=== PATIENT | female | born 1985 | race Caucasian/White ===

== ENCOUNTER 2018-06-28 17:21 | Emergency (ER) | payer MEDICAID ==
[~2018-06-28] VITALS: Ht 170.2 cm; Wt 116.6 kg
[2018-06-28 17:37] VITALS: Ht 170.2 cm; Wt 116.6 kg
[2018-06-28 19:11] VITALS: BP 136/88
== END 2018-06-28 19:11 | disposition home or self-care (01) ==
LOC: ED 17:21
DX: S50.01XA Contusion of right elbow, initial encounter (principal); Z90.49 Acquired absence of other specified parts of digestive tract; Z88.0 Allergy status to penicillin; W18.30XA Fall on same level, unspecified, initial encounter; Y93.01 Activity, walking, marching and hiking; Y92.007 Garden or yard of unspecified non-institutional (private) residence as the place of occurrence of the external cause; Y99.8 Other external cause status
CPT/HCPCS: J1885